=== PATIENT | female | born 1985 | race Hispanic/Latino ===

== ENCOUNTER 2018-01-04 15:41 | Emergency (ER) | payer OTHER ==
[2018-01-04 16:06] LABS: APPEARANCE,URINE Turbid (CLEAR); BILIRUBIN,URINE Moderate (NEGATIVE); COLOR,URINE Orange (YELLOW); GLUCOSE, URINE (UA) Negative (NEGATIVE); KETONES,URINE Negative (NEGATIVE); LEUKOCYTE ESTERASE ,URINE Large (NEGATIVE); NITRATE,URINE Positive (NEGATIVE); OCCULT BLOOD,URINE Moderate (NEGATIVE); PH,URINE 6.5 (5.0-8.0); PROTEIN,URINE POS 2+ (NEGATIVE)
[2018-01-04 16:16] LABS: BACTERIA,URINE Moderate /HPF (None Seen); MUCUS,URINE Few LPF (None Seen); TRANSITIONAL EPI CELLS,URINE Rare /HPF (None Seen); WBC,URINE >100 /HPF (0-1)
[2018-01-04] MEDS ORDERED: KETOROLAC TROMETHAMINE 15MG/ML ONE (16:47)
[2018-01-04] MEDS ORDERED: CEFTRIAXONE SODIUM 1 GM ONE (16:47)
== END 2018-01-04 18:21 | disposition home or self-care (01) ==
LOC: EDH 15:41
DX: N39.0 Urinary tract infection, site not specified (principal); Z88.8 Allergy status to other drugs, medicaments and biological substances
CPT/HCPCS: 81001; 87088; 87186; 96374; 96375; 99284; J0696; J1885

== ENCOUNTER 2019-06-28 19:47 | Emergency (ER) | payer MEDICAID ==
[2019-06-28] MEDS ORDERED: ACETAMINOPHEN EXTRA STRENGTH 500 MG TABLET ONE (20:14)
[2019-06-28 20:43] LABS: APPEARANCE,URINE CLOUDY (CLEAR); BILIRUBIN,URINE NEGATIVE (NEGATIVE); COLOR,URINE YELLOW (YELLOW); GLUCOSE, URINE (UA) NEGATIVE (NEGATIVE); KETONES,URINE NEGATIVE (NEGATIVE); LEUKOCYTE ESTERASE ,URINE TRACE (NEGATIVE); NITRATE,URINE POSITIVE (NEGATIVE); OCCULT BLOOD,URINE TRACE-INTACT (NEGATIVE); PH,URINE 6.5 (5.0-8.0); PROTEIN,URINE TRACE mg/dL (NEGATIVE); UROBILINOGEN,URINE 0.2 mg/dL (0.2-1.0)
[2019-06-28 20:47] LABS: BACTERIA,URINE Many /HPF (None Seen); MUCUS,URINE Many LPF (None Seen); SQUAMOUS EPITHELIAL CELL,UR 0-2 /HPF (0-2); WBC,URINE 26-50 /HPF (0-1)
[2019-06-28] MEDS ORDERED: KETOROLAC TROMETHAMINE 60 MG/2 ML VIAL ONE (21:25)
[2019-06-28] MEDS ORDERED: LIDOCAINE 5% TOPICAL PATCH TP ONE (22:58)
== END 2019-06-28 23:14 | disposition home or self-care (01) ==
LOC: EDH 19:47
DX: M62.830 Muscle spasm of back (principal); M54.2 Cervicalgia; R11.0 Nausea; Z88.8 Allergy status to other drugs, medicaments and biological substances; Z98.890 Other specified postprocedural states
CPT/HCPCS: 81001; 81025; 96372; 99284; J1885

== ENCOUNTER 2019-08-23 14:21 | Emergency (ER) | payer MEDICAID, OTHER ==
[2019-08-23 15:33] LABS: APPEARANCE,URINE TURBID (CLEAR); BILIRUBIN,URINE NEGATIVE (NEGATIVE); COLOR,URINE YELLOW (YELLOW); GLUCOSE, URINE (UA) NEGATIVE (NEGATIVE); KETONES,URINE NEGATIVE (NEGATIVE); LEUKOCYTE ESTERASE ,URINE MODERATE (NEGATIVE); NITRATE,URINE POSITIVE (NEGATIVE); OCCULT BLOOD,URINE SMALL (NEGATIVE); PROTEIN,URINE TRACE mg/dL (NEGATIVE); UROBILINOGEN,URINE 0.2 mg/dL (0.2-1.0)
[2019-08-23 15:35] LABS: HCG,QUAL RESULT NEGATIVE (NEGATIVE)
[2019-08-23 15:53] LABS: BACTERIA,URINE Many /HPF (None Seen); MUCUS,URINE Many LPF (None Seen); WBC,URINE 51-100 /HPF (0-1)
[2019-08-23] MEDS ORDERED: LIDOCAINE HCL-MPF 1% 2ML VIAL ONE (16:08)
[2019-08-23] MEDS ORDERED: CEFTRIAXONE SODIUM 1 GM ONE (16:08)
== END 2019-08-23 16:52 | disposition home or self-care (01) ==
LOC: EDH 14:21
DX: N39.0 Urinary tract infection, site not specified (principal); J11.1 Influenza due to unidentified influenza virus with other respiratory manifestations; Z88.8 Allergy status to other drugs, medicaments and biological substances; Z98.890 Other specified postprocedural states
CPT/HCPCS: 71046; 81001; 81025; 87077; 87088; 87186; 87804 ×2; 96372; 99284; J0696; J3490

== ENCOUNTER 2024-03-29 18:26 | Emergency (ER) | payer MEDICAID ==
[~2024-03-29] VITALS: Ht 162.6 cm; Wt 71.7 kg
[2024-03-29] MEDS: 0.9%NACL 1000ML 1,000 ML IV ONE (20:35)
[2024-03-29] MEDS: morPHINE 4 MG SYG IVP ONE (20:35)
[2024-03-29] MEDS: ondanSETRON 4MG INJ IVP ONE (20:35)
[2024-03-29 20:39] VITALS: BP 130/68; PULSE 80; RESP 16; TEMP 98.3; O2SAT 99
[2024-03-29 20:55] LABS: BASOPHILS # (AUTO) 0.03 K/uL (0.00-0.20); BASOPHILS % (AUTO) 0.6 % (0.0-5.0); EOSINOPHILS # (AUTO) 0.04 K/uL (0.00-0.70); EOSINOPHILS % (AUTO) 0.8 % (0.0-8.0); HEMATOCRIT 34.1 % (36-48); LYMPHOCYTES # (AUTO) 2.6 K/uL (1.0-4.8); LYMPHOCYTES % (AUTO) 52.4 % (21.0-51.0); MEAN CORPUSCULAR HEMOGLOBIN 29.3 pg (27.0-33.0); MEAN CORPUSCULAR VOLUME 91.7 fL (79-99); MONOCYTES # (AUTO) 0.4 K/uL (0.1-1.0); MONOCYTES % (AUTO) 8.7 % (3.0-13.0); NEUTROPHILS # (AUTO) 1.9 K/uL (1.8-7.7); NEUTROPHILS % (AUTO) 37.5 % (40.0-77.0); PLATELET COUNT (AUTO) 350 K/uL (130-400); RED BLOOD CELL COUNT(AUTO) 3.72 MIL/uL (4.00-5.50); RED CELL DISTRIBUTION WIDTH 11.9 % (11.0-15.5)
[2024-03-29 21:03] LABS: APPEARANCE,URINE TURBID (CLEAR); BILIRUBIN,URINE 2 mg/dL (NEGATIVE); COLOR,URINE DARK-YELLOW (YELLOW); GLUCOSE, URINE (UA) NEGATIVE (NEGATIVE); KETONES,URINE NEGATIVE (NEGATIVE); LEUKOCYTE ESTERASE ,URINE NEGATIVE Leu/uL (NEGATIVE); NITRATE,URINE 2+ (NEGATIVE); OCCULT BLOOD,URINE NEGATIVE (NEGATIVE); PH,URINE 6.5 (5.0-8.0); PROTEIN,URINE 50 mg/dL (NEGATIVE); UROBILINOGEN,URINE 6 mg/dL (0.2-1.0)
[2024-03-29 21:04] LABS: CREATININE 0.8 mg/dL (0.5-1.0); POTASSIUM 4.1 mmol/L (3.5-5.1)
[2024-03-29 21:05] LABS: HCG,QUALITATIVE URINE NEGATIVE (NEGATIVE)
[2024-03-29 21:06] LABS: ADD UA MICROSCOPIC YES
[2024-03-29 21:11] LABS: NON-SQUAMOUS EPITHELIAL CELL <1 /HPF (0-2); TRANSITIONAL EPI CELLS,URINE MOD /HPF (None Seen); WBC CLUMP RARE /HPF (0-1); WBC,URINE 51-100 /HPF (0-1)
[2024-03-29] MEDS ORDERED: IBUP-2077 PO (22:45)
[2024-03-29] MEDS ORDERED: TAMS-1 PO (22:45)
[2024-03-29] MEDS ORDERED: CEPH500B PO (22:45)
[2024-03-29] MEDS: tamSULOsin HCL 0.4 MG CAP.ER.24H PO ONE (22:59)
[2024-03-29] MEDS: cefTRIAXone 1G VIAL IVPB ONE (22:59)
== END 2024-03-29 23:08 | disposition home or self-care (01) ==
LOC: EDH 18:26
DX: N20.0 Calculus of kidney (principal); N39.0 Urinary tract infection, site not specified; E11.9 Type 2 diabetes mellitus without complications; Z88.8 Allergy status to other drugs, medicaments and biological substances; Z98.890 Other specified postprocedural states
CPT/HCPCS: 99285; 74176; 96374; 96375; 80048; 85025; 87040; 87086 ×2; 87186; 83605; 81001; 81025; 36415; J7030; J0696; J2405; J2270